=== PATIENT | female | born 1970 | race Caucasian/White ===

== ENCOUNTER → 2021-01-14 15:18 | Outpatient (CLI) | payer OTHER | END | disposition home or self-care (01) | LOC: PPH VACUNA 15:18 | DX: Z23 Encounter for immunization (principal) ==

== ENCOUNTER 2023-10-06 14:23 | Emergency (ER) | payer OTHER ==
[~2023-10-06] VITALS: Ht 172.7 cm; Wt 86.2 kg
[2023-10-06] MEDS ORDERED: CENTRUM ADULTS12 MCG (15:34)
[2023-10-06 18:37] LABS: HEMATOCRIT 42.5 % (36.0-45.00); HEMOGLOBIN 14.2 g/dL (12.0-15.00); MEAN CELL VOLUME 94.5 fL (80.00-100.00); MEAN CORPUSCULAR HEMOGLOBIN 31.6 pg (27.00-32.0); MEAN CORPUSCULAR HGB CONC 33.4 g/dl (32.0-36.0); PLATELET COUNT 180 K/uL (150-450); RED CELL DISTRIBUTION WIDTH 14.3 % (11.5-14.5)
[2023-10-06 18:55] LABS: CALCIUM 9.7 mg/dL (8.5-10.1); CREATININE SERUM 0.73 mg/dL (0.55-1.02); GFR 84.05
== END 2023-10-06 20:56 | disposition home or self-care (01) ==
LOC: ER 14:23
PROVIDERS: General Practice
DX: R42 Dizziness and giddiness (principal)

== ENCOUNTER 2025-07-29 09:52 | Outpatient (CLI) | payer OTHER ==
[~2025-07-29 09:52] MED LIST: CENTRUM ADULTS12 MCG
== END 2025-07-29 10:01 | disposition home or self-care (01) ==
LOC: RAD 09:52
PROVIDERS: ATTEND Physical Medicine & Rehabilitation
DX: M17.11 Unilateral primary osteoarthritis, right knee (principal)